=== PATIENT | female | born 1975 | race American Indian/Alaskan Native ===

== ENCOUNTER 2018-03-06 05:36 | Inpatient (IN) | payer OTHER ==
[2018-03-06] MEDS ORDERED: ASPIRIN PO ONE (05:51)
[2018-03-06] MEDS ORDERED: NACL 0.9% 1000 ML 1,000 ML ONE (06:14)
[2018-03-06] MEDS ORDERED: LOPRESSOR IV ONE (06:23)
--- NOTE | 2018-03-06 06:45 | Emergency Department Report ---
ED Chest Pain HPI - General Chief Complaint: Chest Pain Stated Complaint: CHEST PAIN Time Seen by Provider: 03/06/18 06:11 Source: patient Mode of arrival: Ambulatory Limitations: No Limitations - History of Present Illness Initial Comments: Patient is 42 years old female with no significant past medical history. Patient presented to the ER complaining of sudden onset of left sided chest pain with his heart racing. Patient stated that pain started around 3:00 this morning when she was watching a movie with her . Patient stated that she had multiple episode of palpitation before but usually lost very quickly like this one. Patient stated that she is having some shortness of breath with the symptoms. She denied any cough or fever recently. No recent travel or history of DVT or PE. Patient EKG showed SVT with a heart rate of 158. Patient received 6 mg of Adenocard was not respond another 12 mg then patient converted to sinus rhythm. Patient blood pressure 178/123. Patient received Lopressor 5 mg IV also. Patient stated that her symptoms is much better. MD Complaint: chest pain -: Sudden Onset: during rest Pain Location: left chest Severity scale (0 -10): 1 Quality: tightness Consistency: constant - Related Data Allergies Allergy/AdvReac Type Severity Reaction Status Date / Time No Known Allergies Allergy Verified 03/06/18 06:24 Heart Score - HEART Score History: Moderately suspicious EKG: Non-specific Age: < 45 Risk factors: 1-2 risk factors Troponin: < normal limit HEART Score: 3 - Critical Actions Critical Actions: 0-3 pts:0.9-1.7%risk of adverse cardiac event.Candidate for discharge ED Review of Systems ROS: Stated complaint: CHEST PAIN Other details as noted in HPI Comment: All other systems reviewed and negative Constitutional: denies: chills, fever Respiratory: denies: cough, orthopnea, shortness of breath, SOB with exertion, SOB at rest, wheezing Cardiovascular: chest pain, palpitations Gastrointestinal: denies: abdominal pain, nausea, vomiting, diarrhea Neurological: denies: headache, weakness, numbness, paresthesias, confusion ED Past Medical Hx - Past Medical History Previous Medical History?: No - Surgical History Past Surgical History?: Yes Hx Appendectomy: Yes Additional Surgical History: ectopic - Social History Smoking Status: Current Every Day Smoker Substance Use Type: None ED Physical Exam - General Limitations: No Limitations General appearance: alert, anxious - Head Head exam: Present: atraumatic, normocephalic - Eye Eye exam: Present: normal appearance, PERRL - ENT ENT exam: Present: normal exam, normal orophraynx, mucous membranes moist - Neck Neck exam: Present: normal inspection, full ROM. Absent: tenderness, meningismus, lymphadenopathy, thyromegaly - Respiratory Respiratory exam: Present: normal lung sounds bilaterally. Absent: respiratory distress, wheezes, rales, rhonchi, chest wall tenderness, accessory muscle use, decreased breath sounds, prolonged expiratory - Cardiovascular Cardiovascular Exam: Present: tachycardia - GI/Abdominal GI/Abdominal exam: Present: soft, normal bowel sounds. Absent: distended, tenderness, guarding, rebound, rigid, organomegaly, mass, bruit, pulsatile mass , hernia - Extremities Exam Extremities exam: Present: normal inspection, full ROM, normal capillary refill. Absent: tenderness, pedal edema, joint swelling, calf tenderness - Back Exam Back exam: Present: normal inspection, full ROM. Absent: tenderness, CVA tenderness (R), CVA tenderness (L), muscle spasm, paraspinal tenderness, vertebral tenderness - Neurological Exam Neurological exam: Present: alert, oriented X3, CN II-XII intact, normal gait - Psychiatric Psychiatric exam: Present: normal affect, anxious - Skin Skin exam: Present: warm, intact, normal color ED Course Vital Signs 03/06/18 05:52 Temperature 97.6 F Pulse Rate 168 H Respiratory 20 Rate Blood Pressure 174/135 [Right] O2 Sat by Pulse 100 Oximetry ED Medical Decision Making - Lab Data Result diagrams: 03/06/18 05:55 03/06/18 05:55 - EKG Data -: EKG Interpreted by Nc Rate: tachycardia - EKG Data 03/06/18 06:45 SVT, no ST elevation or depression. - Radiology Data Radiology results: report reviewed Referring Physician: OZZIE LUCAS Patient Name: GUILLE MELENDEZ Date of : 1975 Sex: Female Report Date: 2018-03-06 Report Status: Finalized Findings [facility] [address] [place] [address] XRay Report Signed Patient: GUILLE MELENDEZ MR#: [id number] : 1975 Acct:[id number] Age/Sex: 42 / F ADM Date: 03/06/18 Loc: ED Attending Dr: Ordering Physician: OZZIE LUCAS Date of Service: 03/06/18 Procedure(s): XR chest 1V ap Accession Number(s): [id number] cc: OZZIE LUCAS Fluoro Time In Minutes: FINAL REPORT EXAM: XR CHEST 1V AP HISTORY: chest pain TECHNIQUE: Chest, portable upright PRIORS: None. FINDINGS: The heart size is normal. Mediastinal contours are normal. Pulmonary vasculature is not congested. The lungs are clear. There are no pleural effusion seen. There is no evidence of pneumothorax. IMPRESSION: There is no acute abnormality identified. Transcribed By: SUNDAR Dictated By: JOSE ALBERTO JERRY MD Electronically Authenticated By: JOSE ALBERTO JERRY MD Signed Date/Time: 03/06/18700 DD/ 0 TD/TT: 03/06/18700 - Medical Decision Making I discussed the patient is Dr. Harris, who agreed to admit the patient to service. Critical Care Time: Yes Critical care time in (mins) excluding proc time.: 30 Critical care attestation.: If time is entered above; I have spent that time in minutes in the direct care of this critically ill patient, excluding procedure time. ED Disposition Clinical Impression: SVT (supraventricular tachycardia), Chest pain, Malignant hypertension Disposition: OP ADMIT IP TO THIS HOSP Is pt being admited?: Yes Condition: Stable Instructions: Chest Pain (ED), Hypertension (ED)
[2018-03-06 06:58] LABS: Basophils # (Auto) 0.1 K/mm3 (0.0-0.1); Basophils % (Auto) 1.1 % (0.0-1.8); Eosinophils # (Auto) 0.3 K/mm3 (0.0-0.4); Eosinophils % (Auto) 4.5 % (0.0-4.3); Hematocrit 46.7 % (30.3-42.9); Hemoglobin 15.6 gm/dl (10.1-14.3); Lymphocytes # (Auto) 3.5 K/mm3 (1.2-5.4); Mean Corpuscular HGB Conc 34 % (30-34); Mean Corpuscular Hemoglobin 31 pg (28-32); Mean Corpuscular Volume 92 fl (79-97); Monocytes # (Auto) 0.8 K/mm3 (0.0-0.8); Monocytes % (Auto) 10.9 % (0.0-7.3); Platelet Count 376 K/mm3 (140-440); Red Blood Count 5.08 M/mm3 (3.65-5.03); Red Cell Distribution Width 14.5 % (13.2-15.2)
--- NOTE | 2018-03-06 07:07 | XRay Report ---
FINAL REPORT EXAM: XR CHEST 1V AP HISTORY: chest pain TECHNIQUE: Chest, portable upright PRIORS: None. FINDINGS: The heart size is normal. Mediastinal contours are normal. Pulmonary vasculature is not congested. The lungs are clear. There are no pleural effusion seen. There is no evidence of pneumothorax. IMPRESSION: There is no acute abnormality identified.
[2018-03-06 07:22] LABS: BUN/Creatinine Ratio 13; Blood Urea Nitrogen 8 mg/dL (7-17); Calcium 8.7 mg/dL (8.4-10.2); Hemolysis Index 6
[2018-03-06 07:52] LABS: Alanine Aminotransferase 8 units/L (7-56); Albumin 3.9 g/dL (3.9-5)
[2018-03-06 07:55] LABS: Bilirubin,Direct < 0.2 mg/dL (0-0.2)
--- NOTE | 2018-03-06 09:24 | History and Physical Report ---
History of Present Illness Date of examination: 03/06/18 Chief complaint: Palpitations followed by chest pain, SOB Past History Past Medical History: other (Palpitations, Obesity) Past Surgical History: appendectomy, Other (Ectopic surg) Social history: , lives with family, smoking (half pack cigarettes a day) , alcohol abuse (wine every few days), full code Family history: CAD, stroke Medications and Allergies Allergies Allergy/AdvReac Type Severity Reaction Status Date / Time No Known Allergies Allergy Verified 03/06/18 06:24 Exam - Constitutional Vitals: Temp Pulse Resp BP Pulse Ox 97.6 F 168 H 20 174/135 100 03/06/18 05:52 03/06/18 05:52 03/06/18 05:52 03/06/18 05:52 03/06/18 05:52 Results - Labs CBC & Chem 7: 03/06/18 05:55 03/06/18 05:55 Labs: Abnormal lab results 03/06/18 03/06/18 Range/Units 05:55 05:55 RBC 5.08 H (3.65-5.03) M/mm3 Hgb 15.6 H (10.1-14.3) gm/dl Hct 46.7 H (30.3-42.9) % Lymph % (Auto) 48.0 H (13.4-35.0) % Ware % (Auto) 10.9 H (0.0-7.3) % Eos % (Auto) 4.5 H (0.0-4.3) % Seg Neutrophils % 35.5 L (40.0-70.0) % Potassium 3.4 L (3.6-5.0) mmol/L Creatinine 0.6 L (0.7-1.2) mg/dL Glucose 117 H (65-100) mg/dL Assessment and Plan Supraventricular tachycardia. Given 6mg and 12 mg Adenosibne in ED, now converted to NSR
[2018-03-06] MEDS ORDERED: ZOFRAN IV PRN (09:40)
[2018-03-06] MEDS ORDERED: TYLENOL PO PRN (09:40)
[2018-03-06] MEDS ORDERED: SODIUM CHLORIDE FLUSH SYRINGE 10 ML IV PRN ×2 (09:40→09:43)
[2018-03-06] MEDS ORDERED: NITROSTAT SL PRN (09:43)
[2018-03-06] MEDS ORDERED: APRESOLINE IV PRN (09:47)
[2018-03-06] MEDS: CARDIZEM PO SCH ×3 (10:00→19:02)
[2018-03-06] MEDS: SODIUM CHLORIDE FLUSH SYRINGE 10 ML IV SCH ×2 (13:25→22:08)
[2018-03-06] MEDS ORDERED: KPHOS 30 MMOL in NACL 0.9% 500 ML 500 ML IV ONE (15:22)
[2018-03-06] MEDS: HEPARIN SUB-Q SCH (22:08)
[2018-03-07] MEDS: CARDIZEM PO SCH ×3 (00:13→12:44)
[2018-03-07] MEDS: HEPARIN SUB-Q SCH ×2 (05:40→16:04)
[2018-03-07 07:58] LABS: Basophils % (Auto) 0.7 % (0.0-1.8); Eosinophils # (Auto) 0.2 K/mm3 (0.0-0.4); Eosinophils % (Auto) 4.5 % (0.0-4.3); Hemoglobin 13.5 gm/dl (10.1-14.3); Lymphocytes # (Auto) 1.6 K/mm3 (1.2-5.4); Lymphocytes % (Auto) 30.3 % (13.4-35.0); Mean Corpuscular HGB Conc 34 % (30-34); Mean Corpuscular Hemoglobin 31 pg (28-32); Mean Corpuscular Volume 92 fl (79-97); Monocytes # (Auto) 0.5 K/mm3 (0.0-0.8); Monocytes % (Auto) 8.7 % (0.0-7.3); Platelet Count 292 K/mm3 (140-440); Red Blood Count 4.34 M/mm3 (3.65-5.03); Red Cell Distribution Width 14.5 % (13.2-15.2)
[2018-03-07 08:06] LABS: Hematocrit 39.8 % (30.3-42.9)
[2018-03-07 08:20] LABS: BUN/Creatinine Ratio 23; Blood Urea Nitrogen 16 mg/dL (7-17); Calcium 8.7 mg/dL (8.4-10.2); Hemolysis Index 6
[2018-03-07] MEDS ORDERED: LEXISCAN IV ONE (09:10)
[2018-03-07 09:12] LABS: HCG Qualitative,Urine Negative (Negative)
[2018-03-07 09:20] LABS: Amphetamine Screen,Urine PRESUMPTIVE NEGATIVE; Benzodiazepines Screen,Urine PRESUMPTIVE NEGATIVE; Cannabinoid Screen,Urine PRESUMPTIVE NEGATIVE; Cocaine Screen,Urine PRESUMPTIVE NEGATIVE; Methadone Screen,Urine PRESUMPTIVE NEGATIVE; Opiate Screen,Urine PRESUMPTIVE NEGATIVE
[2018-03-07] MEDS ORDERED: ECOTRIN PO SCH (10:00)
--- NOTE | 2018-03-07 11:08 | Consultation ---
History of Present Illness Consult date: 03/07/18 Consult reason: other (Palpitations) History of present illness: 42 year old -[place] female sent in with palpitations which have been persistent. She was seen in the emergency room EKG showed a narrow QRS tachycardia at 150 bpm patient was treated with intravenous adenosine at reverted back to sinus rhythm. Patient claims to have heart recall recent palpitations over the years most of the time stops on its own this was the first time she had to come to the emergency room for treatment. She also claims episodes have become more frequent. Past History Past Medical History: other (Palpitations, Obesity) Past Surgical History: appendectomy, Other (Ectopic surg) Social history: , lives with family, smoking (half pack cigarettes a day) , alcohol abuse (wine every few days), full code Family history: CAD, stroke Medications and Allergies Allergies Allergy/AdvReac Type Severity Reaction Status Date / Time No Known Allergies Allergy Verified 03/06/18 06:24 Home Medications Medication Instructions Recorded Confirmed Last Taken Type No Known Home Medications [No 03/07/18 03/07/18 Unknown History Reported Home Medications] Active Meds: Active Medications Acetaminophen (Tylenol) 650 mg PO Q4H PRN PRN Reason: Pain MILD(1-3)/Fever >100.5/RODRIGUEZ Aspirin (Ecotrin) 325 mg PO QDAY [facility] Diltiazem HCl (Cardizem) 60 mg PO Q6HR [facility] Last Admin: 03/07/18 05:39 Dose: 60 mg Heparin Sodium (Porcine) (Heparin) 5,000 unit SUB-Q Q8HR [facility] Last Admin: 03/07/18 05:40 Dose: Not Given Hydralazine HCl (Apresoline) 10 mg IV Q4HR PRN PRN Reason: For SBP>170 or DBP>110 Nitroglycerin (Nitrostat) 0.4 mg SL Q5M PRN PRN Reason: Chest Pain Ondansetron HCl (Zofran) 4 mg IV Q8H PRN PRN Reason: Nausea And Vomiting Sodium Chloride (Sodium Chloride Flush Syringe 10 Ml) 10 ml IV BID [facility] Last Admin: 03/06/18 22:08 Dose: 10 ml Sodium Chloride (Sodium Chloride Flush Syringe 10 Ml) 10 ml IV PRN PRN PRN Reason: LINE FLUSH Sodium Chloride (Sodium Chloride Flush Syringe 10 Ml) 10 ml IV PRN PRN PRN Reason: LINE FLUSH Review of Systems All systems: negative (palpitations) Physical Examination Vital Signs Temp Pulse Resp BP Pulse Ox 97.6 F 163 H 26 H 174/135 100 03/06/18 05:51 03/06/18 05:51 03/06/18 05:51 03/06/18 05:51 03/06/18 05:51 General appearance: no acute distress, obese HEENT: Positive: PERRL, Mucus Membranes Moist Neck: Positive: neck supple, trachea midline Cardiac: Positive: Reg Rate and Rhythm, S1/S2. Negative: Audible Murmur Lungs: Positive: clear to auscultation, Normal Breath Sounds Neuro: Positive: Grossly Intact Abdomen: Positive: Soft, Active Bowel Sounds. Negative: Tender, Distended Female genitourinary: deferred Skin: Positive: Clear Incision: Cardiac Cath Site Musculoskeletal: No Pain, Normal Range of Motion Extremities: Present: normal. Absent: edema Results 03/07/18 07:09 03/07/18 07:09 CBC 03/07/18 Range/Units 07:09 WBC 5.4 (4.5-11.0) K/mm3 RBC 4.34 (3.65-5.03) M/mm3 Hgb 13.5 (10.1-14.3) gm/dl Hct 39.8 D (30.3-42.9) % Plt Count 292 (140-440) K/mm3 Lymph # 1.6 (1.2-5.4) K/mm3 [place] # 0.5 (0.0-0.8) K/mm3 Eos # 0.2 (0.0-0.4) K/mm3 Baso # 0.0 (0.0-0.1) K/mm3 Comprehensive Metabolic Panel 03/07/18 Range/Units 07:09 Sodium 137 (137-145) mmol/L Potassium 4.4 D (3.6-5.0) mmol/L Chloride 101.1 (98-107) mmol/L Carbon Dioxide 23 (22-30) mmol/L BUN 16 (7-17) mg/dL Creatinine 0.7 (0.7-1.2) mg/dL Glucose 105 H (65-100) mg/dL Calcium 8.7 (8.4-10.2) mg/dL EKG interpretations - EKG Sinus rhythms and dysrhythmias: sinus rhythm Assessment and Plan 1. Paroxysmal supraventricular tachycardia 2. Obesity Plan. Patient with supraventricular tachycardia documented on 12-lead EKG currently in sinus rhythm. Patient educated on various vasalva maneuvers for future events patient is currently stable. Echocardiogram shows moderate concentric LVH with normal global regional function Stress MPI shows normal exercise to 4 months for age and sex with normal perfusion scan images Patient to be refitted for elective SVT ablation as an outpatient.
--- NOTE | 2018-03-07 12:37 | Discharge Summary ---
Providers - Providers Date of Admission: 03/06/18 10:48 Date of discharge: 03/07/18 Attending physician: LILIAM ROMO 03/06/18 Consult to Cardiac Rehabilitation [CONS] Routine Reason For Exam: Phase I 03/06/18 09:22 Consult to Physician [CONS] Routine Comment: Dr. Blanca notified @ 09:41- [facility] Consulting Provider: SARAHY BLANCA Physician Instructions: Reason For Exam: Chest pain, SVT Primary care physician: [facility] Hospitalization Condition: Fair Disposition: DC-01 TO HOME OR SELFCARE - Discharge Diagnoses (1) PSVT (paroxysmal supraventricular tachycardia) Status: Acute (2) Hypertensive urgency Status: Acute (3) Chest pain Status: Acute Core Measure Documentation - Palliative Care Palliative Care/ Comfort Measures: Not Applicable - Core Measures Any of the following diagnoses?: none Exam - Constitutional Vitals: Temp Pulse Resp BP Pulse Ox 99.9 F H 63 20 149/93 98 03/07/18 05:42 03/07/18 10:00 03/07/18 05:42 03/07/18 05:39 03/07/18 05:42 Plan Activity: advance as tolerated Diet: low fat, low cholesterol, low salt Additional Instructions: 1.Follow up with PCP or [facility] in 1 week. 2.Follow up with Dr. Blanca,cardiology in 1 week Follow up with: PRIMARY CARE, [Primary Care Provider] - 3-5 Days Prescriptions: Diltiazem Cd [Cardizem Cd] 240 mg PO QDAY #30 cap hydrALAZINE [Apresoline TAB] 50 mg PO BID #60 tablet
[2018-03-07] MEDS: SODIUM CHLORIDE FLUSH SYRINGE 10 ML IV SCH (12:38)
[2018-03-07] MEDS ORDERED: APRESOLINE PO SCH (16:00)
[2018-03-07 16:08] VITALS: BP 143/90
--- NOTE | 2018-03-09 23:05 | Treadmill Report ---
THALLIUM STRESS TEST LEFT VENTRICLE: Left ventricular chamber size is within normals. Perfusion study demonstrates homogeneous uptake of the tracer in all segments, no significant perfusion defects identified. Gated analysis demonstrates normal left ventricular systolic function, ejection fraction 62%. CONCLUSION: Normal myocardial perfusion study. JOB# [id number] CA/NTS
== END 2018-03-07 17:36 | disposition home or self-care (01) | DRG 313 ==
LOC: ED 05:36 → 4A 10:48
PROVIDERS: ADMIT Internal Medicine; ATTEND Internal Medicine
DX: R07.9 Chest pain, unspecified (principal); I47.1 Supraventricular tachycardia; I16.0 Hypertensive urgency; F17.200 Nicotine dependence, unspecified, uncomplicated; I10 Essential (primary) hypertension; E66.9 Obesity, unspecified; F10.10 Alcohol abuse, uncomplicated; Z90.49 Acquired absence of other specified parts of digestive tract; Z82.49 Family history of ischemic heart disease and other diseases of the circulatory system; Z82.3 Family history of stroke; Z68.33 Body mass index [BMI] 33.0-33.9, adult
CPT/HCPCS: 36415; 71045; 78452; 80048; 80074; 80307; 81025; 83735; 84100; 84439; 84443; 84484; 84702; 85025; 85379; 93005; 93010; 93017; 93306; 96374; A9502; J0153; J0360; J1644; J7030; J7040